=== PATIENT | male | born 1970 | race American Indian/Alaskan Native ===

== ENCOUNTER 2021-12-08 17:04 | Emergency (ER) | payer MEDICARE ==
[2021-12-08] MEDS ORDERED: ASPIRIN 81 MG TAB CHEW PO ONE (21:15)
[2021-12-08] MEDS ORDERED: hydrALAZINE 20 MG/1 ML INJ IV ONE (21:15)
--- NOTE | 2021-12-08 21:55 | XRay Report ---
CHEST 1 VIEW 12/08/2021 8:49 PM INDICATION / CLINICAL INFORMATION: chest pain. COMPARISON: One view of the chest from 03/12/2012. FINDINGS: SUPPORT DEVICES: None. HEART / MEDIASTINUM: No significant abnormality. LUNGS / PLEURA: No significant pulmonary abnormality. No significant pleural effusion. No pneumothora x. ADDITIONAL FINDINGS: No significant additional findings. IMPRESSION: 1. No acute abnormality of the chest. Signer Name: Nelson Bolanos MD Signed: 12/08/2021 9:51 PM Workstation Name: [id number]
[2021-12-08 22:01] LABS: Basophils # (Auto) 0.1 K/mm3 (0.0-0.1); Basophils % (Auto) 1.1 % (0.0-1.8); Eosinophils # (Auto) 0.1 K/mm3 (0.0-0.4); Eosinophils % (Auto) 1.4 % (0.0-4.3); Hematocrit 48.1 % (35.5-45.6); Lymphocytes # (Auto) 1.3 K/mm3 (1.2-5.4); Lymphocytes % (Auto) 22.5 % (13.4-35.0); Mean Corpuscular HGB Conc 33 % (32-34); Mean Corpuscular Volume 87 fl (84-94); Monocytes # (Auto) 0.3 K/mm3 (0.0-0.8); Monocytes % (Auto) 5.8 % (0.0-7.3); Platelet Count 290 K/mm3 (140-440); Red Blood Count 5.55 M/mm3 (3.65-5.03); Red Cell Distribution Width 13.7 % (13.2-15.2)
[2021-12-08 22:21] LABS: Alanine Aminotransferase 19 units/L (7-56); Albumin 4.4 g/dL (3.9-5); BUN/Creatinine Ratio 7; Blood Urea Nitrogen 10 mg/dL (9-20); Calcium 9.9 mg/dL (8.4-10.2); Hemolysis Index 20
[2021-12-09 00:51] VITALS: BP 131/83
--- NOTE | 2021-12-09 01:32 | Emergency Department Report ---
ED General Adult HPI - General Chief complaint: High BP Stated complaint: HPB Source: patient Mode of arrival: Ambulatory Limitations: No Limitations - History of Present Illness Initial comments: Patient is a 51-year-old -[place] male with history of hypertension, fqd-yhvjece-duodzozyt diabetes, hyperlipidemia, multiple CVAs, and chronic kidney disease who presented to the ED with persistently elevated blood pressure for the last 1 week. Patient admits that he does not take his blood pressure medications, and this was confirmed by his family who stated that the patient is noncompliant with his medications. Patient denies dizziness, syncope, chest pain, nausea and vomiting, cough, sore throat, palpitations, abdominal pain, neck pain, fever and chills or lightheadedness. MD Complaint: Uncontrolled hypertension, noncompliance with medication -: Gradual, year(s) (10) Location: head Radiation: non-radiation Severity scale (0 -10): 3 Quality: aching, dull Consistency: constant Improves with: none Worsens with: none Associated Symptoms: denies other symptoms. denies: confusion, chest pain, cough, diaphoresis, fever/chills, headaches, loss of appetite, malaise, nausea/vomiting, rash, seizure, shortness of breath, syncope, weakness Treatments Prior to Arrival: none - Related Data Previous Rx's Medication Instructions Recorded Last Taken Type Hydralazine HCl 50 mg PO Q8H #90 tab 12/09/21 Unknown Rx Allergies Allergy/AdvReac Type Severity Reaction Status Date / Time No Known Allergies Allergy Verified 12/08/21 17:30 ED Review of Systems ROS: Stated complaint: HPB Other details as noted in HPI Constitutional: other (Uncontrolled hypertension). denies: chills, fever, malaise Eyes: denies: eye pain, eye discharge, vision change ENT: denies: ear pain, throat pain Respiratory: denies: cough, shortness of breath, wheezing Cardiovascular: denies: chest pain, palpitations Endocrine: no symptoms reported Gastrointestinal: denies: abdominal pain, nausea, vomiting, diarrhea Genitourinary: denies: urgency, dysuria Musculoskeletal: denies: back pain, joint swelling, arthralgia Skin: denies: rash, lesions Neurological: denies: headache, weakness, paresthesias Psychiatric: denies: anxiety, depression Hematological/Lymphatic: denies: easy bleeding, easy bruising ED Past Medical Hx - Medications Home Medications: Home Medications Medication Instructions Recorded Confirmed Last Taken Type Hydralazine HCl 50 mg PO Q8H #90 tab 12/09/21 Unknown Rx ED Physical Exam - General Limitations: No Limitations General appearance: alert, in no apparent distress - Head Head exam: Present: atraumatic, normocephalic, normal inspection - Eye Eye exam: Present: normal appearance, PERRL, EOMI Pupils: Present: normal accommodation - ENT ENT exam: Present: normal exam, normal orophraynx, mucous membranes moist, TM's normal bilaterally, normal external ear exam - Neck Neck exam: Present: normal inspection, full ROM. Absent: tenderness, lymphadenopathy, thyromegaly - Respiratory Respiratory exam: Present: normal lung sounds bilaterally. Absent: respiratory distress, wheezes, rales, rhonchi, chest wall tenderness, accessory muscle use, decreased breath sounds - Cardiovascular Cardiovascular Exam: Present: normal rhythm, tachycardia, normal heart sounds. Absent: systolic murmur, diastolic murmur, rubs, gallop - GI/Abdominal GI/Abdominal exam: Present: soft, normal bowel sounds. Absent: tenderness, guarding, rebound, hyperactive bowel sounds, hypoactive bowel sounds, organomegaly - Extremities Exam Extremities exam: Present: normal inspection, full ROM, normal capillary refill. Absent: tenderness - Back Exam Back exam: Present: normal inspection, full ROM. Absent: tenderness, CVA tenderness (R), CVA tenderness (L), muscle spasm, paraspinal tenderness, vertebral tenderness - Neurological Exam Neurological exam: Present: alert, oriented X3, CN II-XII intact, normal gait, reflexes normal - Psychiatric Psychiatric exam: Present: normal affect, normal mood - Skin Skin exam: Present: warm, dry, intact, normal color. Absent: rash ED Course Vital Signs 12/08/21 12/08/21 12/09/21 17:30 21:50 00:51 Temperature 98.6 F Pulse Rate 110 H 84 86 Respiratory 16 14 Rate Blood Pressure 215/122 Blood Pressure 207/123 131/83 [Left] O2 Sat by Pulse 97 100 Oximetry ED Medical Decision Making - Lab Data Result diagrams: 12/08/21 21:23 12/08/21 21:23 - EKG Data EKG shows normal: sinus rhythm Rate: normal - EKG Data When compared to previous EKG there are: no significant change Interpretation: normal EKG 12/09/21 01:40 The EKG shows normal sinus rhythm with a ventricular rate of [address] or T wave abnormalities. - Radiology Data Radiology results: report reviewed, image reviewed [facility] [address] [place] [address] XRay Report Signed Patient: JAKUB LIZAMA MR#: [id number] : 1970 Acct:[id number] Age/Sex: 51 / M ADM Date: 12/08/21 Loc: ED Attending Dr: Ordering Physician: ERASMO ESTRADA Date of Service: 12/08/21 Procedure(s): XR chest 1V ap Accession Number(s): [id number] cc: ERASMO ESTRADA Fluoro Time In Minutes: CHEST 1 VIEW 12/08/2021 8:49 PM INDICATION / CLINICAL INFORMATION: chest pain. COMPARISON: One view of the chest from 03/12/2012. FINDINGS: SUPPORT DEVICES: None. HEART / MEDIASTINUM: No significant abnormality. LUNGS / PLEURA: No significant pulmonary abnormality. No significant pleural effusion. No pneumothorax. ADDITIONAL FINDINGS: No significant additional findings. IMPRESSION: 1. No acute abnormality of the chest. Signer Name: Nelson Bolanos MD Signed: 12/08/2021 9:51 PM Workstation Name: [id number] Transcribed By: MN Dictated By: Nelson Bolanos MD Electronically Authenticated By: Nelson Bolanos MD Signed Date/Time: 12/08/212150 DD/ 50 TD/TT: - Medical Decision Making This is a 51-year-old -[place] male with history of hypertension, lzp-lgrmqss-gnzravisk diabetes, hyperlipidemia, multiple CVAs, and chronic kidney disease who presented to the ED with persistently elevated blood pressure for the last 1 week. Patient admits that he does not take his blood pressure medications, and this was confirmed by his family who stated that the patient is noncompliant with his medications. In the ED, patient is alert and oriented x3 and is not in any distress. Patient was treated for hypertension with hydralazine 20 mg IV x1. Lab test results were reviewed and are all non actionable including the initial and 3-hour troponin levels. Chest x-ray showed no acute cardiopulmonary abnormalities or pneumonitis. EKG shows normal sinus rhythm with a ventricular rate of [address] or T wave abnormalities. On reevaluation, patient vital signs are stable, blood pressure well controlled and the patient was discharged home on medications and advised to follow-up with hi s primary care physician in 7 to 10 days for reevaluation. Patient advised return to the ED immediately if symptoms get worse. - Differential Diagnosis Uncontrolled hypertension; noncompliance Critical care attestation.: If time is entered above; I have spent that time in minutes in the direct care of this critically ill patient, excluding procedure time. ED Disposition Clinical Impression: Uncontrolled stage 2 hypertension, Hx of medication noncompliance Disposition: 01 HOME / SELF CARE / HOMELESS Is pt being admited?: No Does the pt Need Aspirin: No Condition: Stable Instructions: Hypertension, Adult, Vmrn-[id number], Preventing Hypertension, Hypertension (ED) Additional Instructions: Take medication with food, drink plenty of fluids, follow-up with your primary care physician in 7 to 10 days for reevaluation, or return to the ED immediately if symptoms get worse. Prescriptions: Hydralazine HCl 50 mg PO Q8H #90 tab Referrals: [facility] [Provider Group] - 3-5 Days Time of Disposition: 01:28 Print Language: SERBIAN
--- NOTE | 2021-12-09 08:57 | Electrocardiograph Report ---
[facility] Test Date: 2021-12-08 Test Time: 21:29:33 Pat Name: JAKUB LIZAMA Department: Room: Gender: M Ophthalmic Tech: HAYLEY : 1970 Requested By: ED DOC Order Number: [id number] Reading MD: Valentin Mckeon Measurements Intervals [place] Rate: 84 P: 42 KS: 158 QRS: 1 QRSD: 89 T: 52 QT: 373 QTc: 442 Interpretive Statements Sinus rhythm No previous ECG available for comparison Electronically Signed On 12-09-2021 8:56:33 EDT by Valentin Mckeon
== END 2021-12-09 01:42 | disposition home or self-care (01) ==
LOC: ED 17:04
DX: I10 Essential (primary) hypertension (principal); Z91.14 Patient's other noncompliance with medication regimen; Z79.899 Other long term (current) drug therapy
CPT/HCPCS: 36415; 71045; 80053; 83880; 84484; 85025; 93005; 96374; 99284; J0360